=== PATIENT | male | born 1945 | race Caucasian/White ===

== ENCOUNTER 2016-12-04 14:04 | Inpatient (IN) | payer MEDICARE, MEDICAID ==
[~2016-12-04] VITALS: Ht 190.5 cm; Wt 124.0 kg
[~2016-12-04 14:04] MED LIST: BISA5TAB12 PO; CIP250 PO; DIVA500T35 PO; LEVO100 PO; MIRALAX PO; MULT-1238 PO; TAMS0.4C32 PO; TOLT2CAP27 PO; TRAZ300T2 PO
[2016-12-04 15:02] VITALS: BP 111/54
[2016-12-04] MEDS ORDERED: HALOPERIDOL 5 MG TABLET PO PRN (15:30)
[2016-12-04] MEDS ORDERED: PNEUMOCOCCAL VACCINE POLYVALENT 0.5 ML VIAL [PPSV23] IM ONE (15:45)
[2016-12-04] MEDS ORDERED: INFLUENZA VIRUS VACCINE QVS 2016-17 (3YR+)/PF 60 MCG/0.5 ML SYRINGE IM ONE (15:45)
[2016-12-04 16:12] VITALS: BP 124/68
[2016-12-04] MEDS: LORazepam 2 MG TABLET PO PRN (17:12)
[2016-12-04] MEDS: DIVALPROEX SODIUM 500 MG DR TABLET PO SCH (17:12)
[2016-12-04] MEDS: ZOLPIDEM TARTRATE 10 MG TABLET PO PRN (20:40)
[2016-12-04] MEDS: TraZODone HCL 150 MG TABLET PO SCH (20:40)
[2016-12-04] MEDS: IBUPROFEN 400 MG TABLET PO PRN (22:16)
[2016-12-05 07:50] LABS: BASOPHILS % (AUTO) 0.7 % (0.0-2.0); HEMOGLOBIN 13.5 g/dL (13.5-17.5); LYMPHOCYTES # (AUTO) 2.1 K/uL (1.0-4.8); LYMPHOCYTES % (AUTO) 42.1 % (22.0-44.0); MEAN CORPUSCULAR VOLUME 91 fL (80-100); MONOCYTES # (AUTO) 0.6 K/uL (0.1-1.0); MONOCYTES % (AUTO) 12.1 % (2.0-9.0); NEUTROPHILS % (AUTO) 39.1 % (40.0-70.0); PLATELET COUNT (AUTO) 136 K/uL (150-450); RED BLOOD CELL COUNT(AUTO) 4.51 MIL/uL (4.50-5.90); RED CELL DISTRIBUTION WIDTH 14.2 % (11.5-14.5)
[2016-12-05 08:13] LABS: ALANINE AMINOTRANSFERASE 25 U/L (12-78); ALBUMIN 2.9 g/dL (3.4-5.0); ANION GAP 8 mmol/L (8-16); ASPARTATE AMINOTRANSFERASE 24 U/L (15-37); BILIRUBIN,TOTAL 0.3 mg/dL (0.1-1.0); CALCIUM, TOTAL 8.1 mg/dL (8.8-10.5); CARBON DIOXIDE 24 mmol/L (22-29); CHLORIDE 106 mmol/L (98-107); CREATININE 1.07 mg/dL (0.60-1.30); GLOMERULAR FILTR. RATE CALC > 60 mL/min (>60); POTASSIUM 4.2 mmol/L (3.5-5.1); SODIUM SERUM 138 mmol/L (136-145); TOTAL PROTEIN, SERUM 5.9 g/dL (6.4-8.2); UREA NITROGEN, BLOOD 22 mg/dL (7-18)
[2016-12-05 08:45] VITALS: BP 111/61
[2016-12-05] MEDS: DIVALPROEX SODIUM 500 MG DR TABLET PO SCH ×2 (08:46→16:25)
[2016-12-05] MEDS: IBUPROFEN 400 MG TABLET PO PRN ×3 (08:51→22:57)
[2016-12-05] MEDS ORDERED: ACETAMINOPHEN 325 MG TABLET PO PRN (10:00)
[2016-12-05 16:26] VITALS: BP 115/65
[2016-12-05] MEDS: LORazepam 2 MG TABLET PO PRN (16:26)
[2016-12-05] MEDS: TraZODone HCL 150 MG TABLET PO SCH (20:24)
[2016-12-05] MEDS: ZOLPIDEM TARTRATE 10 MG TABLET PO PRN (21:02)
[2016-12-05 22:57] VITALS: BP 142/88
[2016-12-06] MEDS: LEVOTHYROXINE SODIUM 100 MCG TABLET PO SCH (06:43)
[2016-12-06] MEDS: TAMSULOSIN HCL 0.4 MG CAPSULE PO SCH (08:37)
[2016-12-06] MEDS: BISACODYL 5 MG EC TABLET PO SCH (08:38)
[2016-12-06] MEDS: MULTIVITAMINS, THERAPEUTIC TABLET PO SCH (08:38)
[2016-12-06] MEDS: DIVALPROEX SODIUM 500 MG DR TABLET PO SCH ×2 (08:38→16:29)
[2016-12-06] MEDS: POLYETHYLENE GLYCOL 3350 17 GM PACKET PO SCH (08:39)
[2016-12-06 09:30] VITALS: BP 128/80
[2016-12-06] MEDS: TOLTERODINE TARTRATE 2 MG ER CAPSULE PO SCH (12:43)
[2016-12-06 16:00] VITALS: BP 110/72
[2016-12-06] MEDS: ZOLPIDEM TARTRATE 10 MG TABLET PO PRN (21:17)
[2016-12-06] MEDS: TraZODone HCL 150 MG TABLET PO SCH (21:17)
[2016-12-07 02:06] VITALS: BP 112/75
[2016-12-07] MEDS: IBUPROFEN 400 MG TABLET PO PRN ×2 (02:09→09:21)
[2016-12-07] MEDS: LEVOTHYROXINE SODIUM 100 MCG TABLET PO SCH (07:00)
[2016-12-07 08:08] VITALS: BP 109/68
[2016-12-07] MEDS: DIVALPROEX SODIUM 500 MG DR TABLET PO SCH ×2 (08:40→16:43)
[2016-12-07] MEDS: BISACODYL 5 MG EC TABLET PO SCH (08:41)
[2016-12-07] MEDS: TAMSULOSIN HCL 0.4 MG CAPSULE PO SCH (08:41)
[2016-12-07] MEDS: TOLTERODINE TARTRATE 2 MG ER CAPSULE PO SCH (08:41)
[2016-12-07] MEDS: MULTIVITAMINS, THERAPEUTIC TABLET PO SCH (08:41)
[2016-12-07] MEDS: POLYETHYLENE GLYCOL 3350 17 GM PACKET PO SCH (08:42)
[2016-12-07 09:15] VITALS: BP 118/72
[2016-12-07 16:13] VITALS: BP 126/64
[2016-12-07] MEDS: ZOLPIDEM TARTRATE 10 MG TABLET PO PRN (20:29)
[2016-12-07] MEDS: TraZODone HCL 150 MG TABLET PO SCH (20:29)
[2016-12-08] MEDS: LEVOTHYROXINE SODIUM 100 MCG TABLET PO SCH (06:22)
[2016-12-08 06:56] VITALS: BP 112/71
[2016-12-08 08:26] VITALS: BP 120/71
[2016-12-08] MEDS: TAMSULOSIN HCL 0.4 MG CAPSULE PO SCH (08:26)
[2016-12-08] MEDS: DIVALPROEX SODIUM 500 MG DR TABLET PO SCH ×2 (08:27→16:18)
[2016-12-08] MEDS: POLYETHYLENE GLYCOL 3350 17 GM PACKET PO SCH (08:27)
[2016-12-08] MEDS: TOLTERODINE TARTRATE 2 MG ER CAPSULE PO SCH (08:27)
[2016-12-08] MEDS: MULTIVITAMINS, THERAPEUTIC TABLET PO SCH (08:27)
[2016-12-08] MEDS: BISACODYL 5 MG EC TABLET PO SCH (08:27)
[2016-12-08 12:32] VITALS: BP 116/70
[2016-12-08] MEDS: IBUPROFEN 400 MG TABLET PO PRN (12:32)
[2016-12-08 16:00] VITALS: BP 116/72
[2016-12-08] MEDS ORDERED: MAG HYDROX/AL HYDROX/SIMETH ES 30 ML SUSPENSION UDCUP PO PRN (19:45)
[2016-12-08] MEDS: TraZODone HCL 150 MG TABLET PO SCH (20:18)
[2016-12-08] MEDS: ZOLPIDEM TARTRATE 10 MG TABLET PO PRN (22:04)
[2016-12-09] MEDS: IBUPROFEN 400 MG TABLET PO PRN ×2 (01:15→14:07)
[2016-12-09 01:16] VITALS: BP 129/65
[2016-12-09] MEDS: LEVOTHYROXINE SODIUM 100 MCG TABLET PO SCH (06:34)
[2016-12-09 08:10] VITALS: BP 118/64
[2016-12-09] MEDS: TOLTERODINE TARTRATE 2 MG ER CAPSULE PO SCH (08:38)
[2016-12-09] MEDS: MULTIVITAMINS, THERAPEUTIC TABLET PO SCH (08:38)
[2016-12-09] MEDS: DIVALPROEX SODIUM 500 MG DR TABLET PO SCH ×2 (08:39→16:23)
[2016-12-09] MEDS: BISACODYL 5 MG EC TABLET PO SCH (08:39)
[2016-12-09] MEDS: POLYETHYLENE GLYCOL 3350 17 GM PACKET PO SCH (08:39)
[2016-12-09] MEDS: TAMSULOSIN HCL 0.4 MG CAPSULE PO SCH (08:39)
[2016-12-09 14:01] VITALS: BP 116/60
[2016-12-09 16:00] VITALS: BP 110/60
[2016-12-09] MEDS: TraZODone HCL 150 MG TABLET PO SCH (20:32)
[2016-12-10 01:52] VITALS: BP 137/75
[2016-12-10] MEDS: IBUPROFEN 400 MG TABLET PO PRN ×2 (01:55→11:41)
[2016-12-10] MEDS: LEVOTHYROXINE SODIUM 100 MCG TABLET PO SCH (06:18)
[2016-12-10 08:10] VITALS: BP 112/68
[2016-12-10] MEDS: TOLTERODINE TARTRATE 2 MG ER CAPSULE PO SCH (09:41)
[2016-12-10] MEDS: POLYETHYLENE GLYCOL 3350 17 GM PACKET PO SCH (09:41)
[2016-12-10] MEDS: BISACODYL 5 MG EC TABLET PO SCH (09:42)
[2016-12-10] MEDS: DIVALPROEX SODIUM 500 MG DR TABLET PO SCH ×2 (09:42→16:31)
[2016-12-10] MEDS: TAMSULOSIN HCL 0.4 MG CAPSULE PO SCH (09:42)
[2016-12-10] MEDS: MULTIVITAMINS, THERAPEUTIC TABLET PO SCH (09:42)
[2016-12-10 11:39] VITALS: BP 118/76
[2016-12-10 12:41] VITALS: BP 114/74
[2016-12-10 16:00] VITALS: BP 130/71
[2016-12-10] MEDS: TraZODone HCL 150 MG TABLET PO SCH (20:12)
[2016-12-11] MEDS: LEVOTHYROXINE SODIUM 100 MCG TABLET PO SCH (06:36)
[2016-12-11 06:55] VITALS: BP 104/68
[2016-12-11 08:10] VITALS: BP 111/61
[2016-12-11] MEDS ORDERED: POLY238P2 PO (09:53)
[2016-12-11] MEDS: TAMSULOSIN HCL 0.4 MG CAPSULE PO SCH (10:10)
[2016-12-11] MEDS: MULTIVITAMINS, THERAPEUTIC TABLET PO SCH (10:11)
[2016-12-11] MEDS: TOLTERODINE TARTRATE 2 MG ER CAPSULE PO SCH (10:11)
[2016-12-11] MEDS: BISACODYL 5 MG EC TABLET PO SCH (10:11)
[2016-12-11] MEDS: POLYETHYLENE GLYCOL 3350 17 GM PACKET PO SCH (10:11)
[2016-12-11] MEDS: DIVALPROEX SODIUM 500 MG DR TABLET PO SCH (10:11)
== END 2016-12-11 14:40 | disposition home or self-care (01) | DRG 881 ==
LOC: B3A 15:32
PROVIDERS: ADMIT Psychiatry & Neurology Psychiatry; ATTEND Psychiatry & Neurology Psychiatry
DX: F32.9 Major depressive disorder, single episode, unspecified (principal); R45.851 Suicidal ideations; E03.9 Hypothyroidism, unspecified; F17.200 Nicotine dependence, unspecified, uncomplicated; M19.90 Unspecified osteoarthritis, unspecified site; K59.09 Other constipation; F10.10 Alcohol abuse, uncomplicated; F19.10 Other psychoactive substance abuse, uncomplicated; Y90.9 Presence of alcohol in blood, level not specified; N40.1 Benign prostatic hyperplasia with lower urinary tract symptoms; R33.8 Other retention of urine; Z71.6 Tobacco abuse counseling; Z71.89 Other specified counseling; Z28.09 Immunization not carried out because of other contraindication
CPT/HCPCS: 83036